=== PATIENT | female | born 1975 | race African-American/Black ===

== ENCOUNTER 2017-12-22 13:47 | Emergency (ER) | payer SELFPAY ==
[~2017-12-22] VITALS: Ht 157.5 cm; Wt 66.7 kg
[2017-12-22] MEDS ORDERED: KETOROLAC TROMETHAMINE INJ 60 MG/2 ML VIAL IM ONE (15:00)
[2017-12-22] MEDS ORDERED: KETOROLAC TROMETHAMINE INJ 30 MG/ML VIAL ONE (15:04)
--- NOTE | 2017-12-22 15:08 | NUR ---
Pt for DC AICI given-home ambulatory stable
[2017-12-22 15:09] VITALS: BP 102/79
== END 2017-12-22 15:09 | disposition home or self-care (01) ==
LOC: ER 13:56
DX: M54.5 Low back pain (principal); S90.562A Insect bite (nonvenomous), left ankle, initial encounter; S90.561A Insect bite (nonvenomous), right ankle, initial encounter; Z88.0 Allergy status to penicillin; V49.49XA Driver injured in collision with other motor vehicles in traffic accident, initial encounter; W57.XXXA Bitten or stung by nonvenomous insect and other nonvenomous arthropods, initial encounter; Y93.89 Activity, other specified; Y92.413 State road as the place of occurrence of the external cause; Y99.8 Other external cause status
CPT/HCPCS: 96372; 99283; A4606; J1885; Z7610